=== PATIENT | female | born 1945 | race Caucasian/White ===

== ENCOUNTER 2016-08-28 09:17 | Emergency (ER) | payer MEDICARE ==
[2016-08-28] MEDS ORDERED: ACETAMINOPHEN 325 MG TABLET PO ONE (10:01)
[2016-08-28] MEDS ORDERED: NORMAL SALINE 1000 ML 1,000 ML IV ONE (10:21)
[2016-08-28] MEDS ORDERED: KETOROLAC TROMETHAMINE INJ/PF 30 MG/1 ML SDV IV ONE (10:34)
[2016-08-28] MEDS ORDERED: ONDANSETRON HCL INJ/PF 4 MG/2 ML SDV IV ONE (10:34)
--- NOTE | 2016-08-28 10:41 | ER Document Report ---
ED General - General Chief Complaint: Nausea/Vomiting Stated Complaint: VOMITING/NAUSEA Time Seen by Provider: 08/28/16 10:20 - HPI Patient complains to provider of: Vomiting nausea Notes: Patient coming in today for evaluation of nausea vomiting. Patient states ongoing for the last 2 days vomited approximately 8 times a day. Patient states normal bowel movement this morning no diarrhea. Denies fevers or chills. Patient states he did have a history of ulcerative colitis in the past however is never undergone a colectomy. Patient states she has had her gallbladder removed and tubal ligation. Patient coming in a probably interested to evaluation when patient is in no obvious distress. Denies any recent travel trauma denies any recent antibiotics. - Related Data Allergies/Adverse Reactions: No Known Allergies Allergy (Unverified 08/28/16 10:00) Past Medical History - Social History Smoking Status: Unknown if Ever Smoked Family History: Reviewed & Not Pertinent - Past Medical History Cardiac Medical History: Reports: Hx Hypercholesterolemia, Hx Hypertension Endocrine Medical History: Reports: Hx Diabetes Mellitus Type 2 GI Medical History: Reports: Hx Gastroesophageal Reflux Disease Review of Systems - Review of Systems Constitutional: No symptoms reported EENT: No symptoms reported Cardiovascular: No symptoms reported Respiratory: No symptoms reported Gastrointestinal: Nausea, Vomiting Genitourinary: No symptoms reported Female Genitourinary: No symptoms reported Musculoskeletal: No symptoms reported Skin: No symptoms reported Hematologic/Lymphatic: No symptoms reported Neurological/Psychological: No symptoms reported -: Yes All other systems reviewed and negative Physical Exam - Vital signs Vitals: Temp Pulse Resp BP Pulse Ox 97.4 F 105 H 16 144/98 H 97 08/28/16 09:40 08/28/16 09:40 08/28/16 09:40 08/28/16 09:40 08/28/16 09:40 Interpretation: Normal - General General appearance: Appears well, Alert - HEENT Head: Normocephalic, Atraumatic Eyes: Normal Pupils: PERRL - Respiratory Respiratory status: No respiratory distress Chest status: Nontender Breath sounds: Normal Chest palpation: Normal - Cardiovascular Rhythm: Regular Heart sounds: Normal auscultation Murmur: No - Abdominal Inspection: Normal Distension: No distension Bowel sounds: Normal Tenderness: Nontender Organomegaly: No organomegaly - Back Back: Normal, Nontender - Extremities General upper extremity: Normal inspection, Nontender, Normal color, Normal ROM , Normal temperature General lower extremity: Normal inspection, Nontender, Normal color, Normal ROM , Normal temperature, Normal weight bearing. No: Daniel's sign - Neurological Neuro grossly intact: Yes Cognition: Normal Orientation: AAOx4 [place] Coma Scale Eye Opening: Spontaneous [place] Coma Scale Verbal: Oriented Vijaya Coma Scale Motor: Obeys Commands Vijaya Coma Scale Total: 15 Speech: Normal Motor strength normal: LUE, RUE, LLE, RLE Sensory: Normal - Psychological Associated symptoms: Normal affect, Normal mood - Skin Skin Temperature: Warm Skin Moisture: Dry Skin Color: Normal Course - Re-evaluation Re-evalutation: 08/28/16 18:55 The patient presents with n/v without signs of peritonitis or other life- threatening or serious etiology. The patient appears stable for discharge and has been instructed to return immediately if the symptoms worsen in any way, or in 8-12hr if not improved for re-evaluation. The patient has been instructed to return if the symptoms worsen or change in any way.. 08/28/16 18:55 Patient was able to tolerate p.o. no vomiting while here. Patient was given 2 bags of normal saline will be discharged home with nausea medication. - Vital Signs Vital signs: Temp Pulse Resp BP Pulse Ox 98.2 F 100 16 131/58 H 97 08/28/16 13:10 08/28/16 13:10 08/28/16 13:10 08/28/16 13:10 08/28/16 13:10 - Laboratory Result Diagrams: 08/28/16 10:28 08/28/16 10:28 Laboratory results interpreted by me: 08/28/16 08/28/16 08/28/16 10:28 10:28 10:55 Seg Neutrophils % 79.8 H Sodium 135.9 L Creatinine 0.51 L Glucose 301 H Direct Bilirubin 0.5 H AST 13 L Alkaline Phosphatase 140 H Lipase < 10.0 L Urine Protein 30 H Urine Glucose (UA) >=500 H Urine Ketones 80 H Ur Leukocyte Esterase TRACE H Discharge - Discharge Clinical Impression: Nausea & vomiting Qualifiers: Vomiting type: unspecified Vomiting Intractability: unspecified Qualified Code( s): R11.2 - Nausea with vomiting, unspecified Condition: Good Disposition: HOME, SELF-CARE Instructions: Vomiting ([facility]), Clear Liquid Diet ([facility]), Gastroenteritis (adult) ([facility]) Additional Instructions: Medication as prescribed. Her lab today is consistent with some mild dehydration more likely from the vomiting. Vomiting is more likely from a virus. You may experience diarrhea later. Time this illness will take approximately 2-5 days to get out the system. I would recommend sticking to a clear liquid diet for the next 12-24 hrs. Prescriptions: Ondansetron [Zofran Odt 4 mg Tablet] 1 tab PO Q4H PRN #30 tab.rapdis PRN Reason: For Nausea/Vomiting Promethazine HCl [Phenergan 25 mg Tablet] 1 tab PO Q6H PRN #30 tablet PRN Reason: Referrals: SHADIA OBRIEN MD [Primary Care Provider] - Follow up in 3-5 days
[2016-08-28 11:01] LABS: ABSOLUTE EOSINOPHILS # (AUTO) 0.1 10^3/uL (0.0-0.6); ABSOLUTE LYMPHOCYTES (AUTO) 1.4 10^3/uL (0.5-4.7); ABSOLUTE MONOCYTES (AUTO) 0.4 10^3/uL (0.1-1.4); ABSOLUTE NEUT (AUTO) 7.3 10^3/uL (1.7-8.2); BASOPHILS % (AUTO) 0.4 % (0-2); EOSINOPHILS % (AUTO) 0.7 % (0-6); HEMATOCRIT 43.3 % (36.0-47.0); HEMOGLOBIN 14.6 g/dL (12.0-15.5); HGB HCT DIFFERENCE 0.5; LYMPHOCYTES % (AUTO) 14.8 % (13-45); MEAN CORPUSCULAR HEMOGLOBIN 28.1 pg (27.0-33.4); MEAN CORPUSCULAR HGB CONC 33.8 g/dL (32.0-36.0); MEAN CORPUSCULAR VOLUME 83 fl (80-97); MONOCYTES % (AUTO) 4.3 % (3-13); RED BLOOD COUNT 5.22 10^6/uL (3.72-5.28); RED CELL DISTRIBUTION WIDTH 13.3 % (11.5-14.0); SEGMENTED NEUTROPHILS % (AUTO) 79.8 % (42-78); WHITE BLOOD COUNT 9.2 10^3/uL (4.0-10.5)
[2016-08-28 11:18] LABS: ALANINE AMINOTRANSFERASE 20 U/L (9-52); ALBUMIN 3.8 g/dL (3.5-5.0); ALKALINE PHOSPHATASE 140 U/L (38-126); ANION GAP 11 (5-19); ASPARTATE AMINO TRANSFERASE 13 U/L (14-36); BILIRUBIN,DIRECT 0.5 mg/dL (0.0-0.4); BILIRUBIN,TOTAL 0.8 mg/dL (0.2-1.3); BLOOD UREA NITROGEN 15 mg/dL (7-20); CALCIUM 9.2 mg/dL (8.4-10.2); CARBON DIOXIDE 22 mmol/L (22-30); CHLORIDE 103 mmol/L (98-107); CREATININE RESULT 0.51 mg/dL (0.52-1.25); GLUCOSE 301 mg/dL (75-110); LIPASE < 10.0 U/L (23-300); POTASSIUM 4.4 mmol/L (3.6-5.0); SODIUM 135.9 mmol/L (137-145); TOTAL PROTEIN 7.2 g/dL (6.3-8.2)
[2016-08-28 11:20] LABS: APPEARANCE,URINE SLIGHTLY-CLOUDY; BILIRUBIN,URINE NEGATIVE (NEGATIVE); GLUCOSE, URINE >=500 mg/dL (NEGATIVE); KETONES,URINE 80 mg/dL (NEGATIVE); LEUKOCYTE ESTERASE,URINE TRACE (NEGATIVE); NITRITE,URINE NEGATIVE (NEGATIVE); PROTEIN,URINE 30 mg/dL (NEGATIVE); URINE SPECIFIC GRAVITY 1.031; UROBILINOGEN,URINE NEGATIVE mg/dL (<2.0)
[2016-08-28] MEDS ORDERED: ONDANSETRON ODT 4 MG TAB (6 TAB/DSPK) PO PRN (12:54)
[2016-08-28 13:37] VITALS: BP 131/58
== END 2016-08-28 13:11 | disposition home or self-care (01) ==
LOC: ER 09:17
DX: R11.2 Nausea with vomiting, unspecified (principal); E11.9 Type 2 diabetes mellitus without complications; I10 Essential (primary) hypertension; Z87.19 Personal history of other diseases of the digestive system; Z90.49 Acquired absence of other specified parts of digestive tract; Z98.51 Tubal ligation status
CPT/HCPCS: 99284; 96374; 96375; 36415; 83690; 85025; 80053; 81001; A9270 ×2; J1885; J2405; J7030

== ENCOUNTER 2016-08-29 15:36 | Emergency (ER) | payer MEDICARE ==
[2016-08-29] MEDS ORDERED: CYCLOBENZAPRINE HCL 10 MG TABLET PO ONE (15:53)
--- NOTE | 2016-08-29 16:11 | ER Document Report ---
ED Neck/Back Problem - General Chief Complaint: Neck Pain >24hrs old Stated Complaint: NECK PAIN, NAUSEA, VOMITING Time Seen by Provider: 08/29/16 15:40 Notes: Patient is a 61-year-old female presents emergency department complaining of left neck pain. Patient states that she has a history of cervical fusion she states that she definitely was ambulatory and had left neck pain. She is followed up with her primary care physician Dr. Blanton who prescribed her symptoms with post obstructive developing. Patient states that she does have a history of her. She has not been able to take her medications Primaxin. She was in yesterday for her nausea and vomiting and sent home with Phenergan. She returns today she is intact to the pain medication and therefore stable to take in her neck. - Related Data Allergies/Adverse Reactions: No Known Allergies Allergy (Unverified 08/28/16 10:00) Past Medical History - Social History Smoking Status: Former Smoker Chew tobacco use (# tins/day): No Frequency of alcohol use: None Drug Abuse: None Family History: Reviewed & Not Pertinent - Past Medical History Cardiac Medical History: Reports: Hx Hypercholesterolemia, Hx Hypertension Endocrine Medical History: Reports: Hx Diabetes Mellitus Type 2 GI Medical History: Reports: Hx Gastroesophageal Reflux Disease Review of Systems - Review of Systems Constitutional: No symptoms reported Gastrointestinal: See HPI Musculoskeletal: See HPI -: Yes All other systems reviewed and negative Physical Exam - Vital signs Vitals: Temp Pulse Resp BP Pulse Ox 97.6 F 97 18 152/98 H 95 08/29/16 15:46 08/29/16 15:46 08/29/16 15:46 08/29/16 15:46 08/29/16 15:46 - Notes Notes: PHYSICAL EXAM GENERAL: Alert, interacts well. HEAD: Normocephalic, atraumatic. NECK: Good range of motion due to severe pain. Patient does admit to tenderness to palpation of spinous processes over existing cervical spine incision site. Patient with prior range of motion turning her head to the left. Able to turn her head to the right. Otherwise she points to her left trapezius as her source of pain. Tender to touch in that location. LUNGS: Clear to auscultation bilaterally, no wheezes, rales, or rhonchi. No respiratory distress. HEART: Regular rate and rhythm. No murmurs, gallops, or rubs. ABDOMEN: Soft, nondistended, nontender. No guarding, rebound, or rigidity.. Bowel sounds present in all 4 quadrants. EXTREMITIES: Moves all 4 extremities spontaneously. No edema, radial and dorsalis pedis pulses 2/4 bilaterally. No cyanosis. NEUROLOGICAL: Alert and oriented x4. Normal speech. PSYCH: Normal affect, normal mood. SKIN: Warm, dry, normal turgor. No rashes or lesions noted. Course - Re-evaluation Re-evalutation: 08/29/16 18:48 CT of the cervical spine does not show any new acute injury. Patient medicated with anti-inflammatories and muscle relaxers, she responded well to this treatment. Patient's sensory and motor functions are intact. Stable for discharge home with instruction to follow-up with primary care. - Vital Signs Vital signs: Temp Pulse Resp BP Pulse Ox 97.4 F 90 20 121/93 H 98 08/29/16 17:46 08/29/16 17:46 08/29/16 17:46 08/29/16 17:46 08/29/16 17:46 - Diagnostic Test Radiology reviewed: Image reviewed, Reports reviewed Discharge - Discharge Clinical Impression: Cervical strain Qualifiers: Encounter type: initial encounter Qualified Code(s): S16.1XXA - Strain of muscle, fascia and tendon at neck level, initial encounter Condition: Good Disposition: HOME, SELF-CARE Instructions: Use of [id number]-[id number]-[id number] Ibuprofen ([facility]) Additional Instructions: NECK INJURY (CERVICAL STRAIN): You have a neck strain. This is an injury to the muscles and ligaments in the neck. There is no evidence of a fracture of the neck bones. Also, no injury to the spinal cord or nerve roots was detected. Usually, stiffness and pain INCREASE for the first 24-48 hours after the injury. The pain will gradually resolve and the neck will become more mobile. Most patients are back at work or school within a few days. Typically, complete healing takes about two or three weeks. The usual initial treatment is rest and cold packs. A neck collar may be placed to keep the muscles of the neck at rest. Antiinflammatory and muscle relaxing medication are often used to reduce the spasm and irritation. You should call the doctor, or go to the hospital, if you develop numbness or weakness in any extremity, problems with your bladder or bowel, or pain radiating down the arms. USE OF TYLENOL (ACETAMINOPHEN): Acetaminophen may be taken for pain relief or fever control. It's much safer than aspirin, offering a wider range of "safe" dosages. It is safe during . Some brand names are Tylenol, Panadol, Datril, Anacin 3, Tempra, and Liquiprin. Acetaminophen can be repeated every four hours. The following are maximum recommended dosages: WEIGHT Dose Drops Elixir Chewable( 80mg) (LBS.) drprs=droppers tsp=teaspoon 6 40 mg 0.4 ml (1/2) 6-11 80 mg 0.8 ml (full) tsp 1 tab 12-16 120 mg 1 1/2 drprs 3/4 tsp 1 1/2 tabs 17-23 160 mg 2 drprs 1 tsp 2 tabs 24-30 240 mg 3 drprs 1 1/2 tsp 3 tabs 30-35 320 mg 2 tsp 4 tabs 36-41 360 mg 2 1/4 tsp 4 1/2 tabs 42-47 400 mg 2 1/2 tsp 5 tabs 48-53 480 mg 3 tsp 6 tabs 54-59 520 mg 3 1/4 tsp 6 1/2 tabs 60-64 560 mg 3 1/2 tsp 7 tabs 65-70 600 mg 3 3/4 tsp 7 1/2 tabs 71-76 640 mg 4 tsp 8 tabs 77-82 720 mg 4 1/2 tsp 9 tabs 83-88 800 mg 5 tsp 10 tabs >89 pounds or adults 650 mg to 900 mg Acetaminophen can be repeated every four hours. Maximum dose not to exceed 4000 mg a day. These maximum recommended dosages are slightly higher than the dosages written on the product container, but these dosages are very safe and below the toxic dosage for acetaminophen. ICE PACKS: Apply ice packs frequently against the painful area. Many different schedules are recommended, such as "20 minutes on, 20 minutes off" or "one hour ice, two hours rest." If you need to work, you may need to go longer between ice treatments. You should plan to have the area ice packed AT LEAST one fourth of the time. The ice should be applied over the wrap, tape, or splint, or over a layer of cloth -- not directly against the skin. Some ice bags have a built-in cloth and can be put directly on the skin. WARM PACKS: After approximately two days, apply gentle heat (such as a heating pad or hot water bottle) for about 20 to 30 minutes about every two hours -- at least four times daily. Warmth and elevation will help you make a more rapid recovery , and will ease the pain considerably. Do not use HOT heat, and never apply heat for longer than 30 minutes. The continuous heat can invisibly damage skin and muscles -- even when no burn is seen on the surface. Damaged muscles can make you MORE sore. MUSCLE RELAXERS: Muscle relaxing medications are usually prescribed for acute muscle spasm or injury to the neck and back. They are often combined with antiinflammatory pain medication for increased relief. You may stop the muscle relaxer when the pain and stiffness have improved. Start the medication again if spasms recur. Muscle relaxers may cause drowsiness, especially with the first dose. Do not operate machinery or drive while under the effects of the medication. Most muscle relaxers last up to 24 hours. Do not combine the medication with alcohol. FOLLOW-UP CARE: If you have been referred to a physician for follow-up care, call the physician s office for an appointment as you were instructed or within the next two days. If you experience worsening or a significant change in your symptoms, notify the physician immediately or return to the Emergency Department at any time for re-evaluation. Prescriptions: Cyclobenzaprine HCl [Flexeril 10 mg Tablet] 10 mg PO TIDP PRN #15 tab PRN Reason: Forms: Elevated Blood Pressure Referrals: SHADIA BLANTON MD [Primary Care Provider] - Follow up in 1 week
--- NOTE | 2016-08-29 16:23 | RADIOLOGY REPORT (SQ) ---
EXAM DESCRIPTION: CT CERVICAL SPINE WITHOUT COMPLETED DATE/TIME: 08/29/2016 4:05 pm REASON FOR STUDY: neck pain, h/o fusion COMPARISON: None. TECHNIQUE: Axial images acquired through the cervical spine without intravenous contrast. Images re viewed with lung, soft tissue and bone windows. Reconstructed coronal and sagittal MPR images review ed. Images stored on PACS. All CT scanners at this facility use dose modulation, iterative reconstruction, and/or weight based d osing when appropriate to reduce radiation dose to as low as reasonably achievable (ALARA). [facility]: Dose Right [facility]: CareDose [facility]: Dose Right [facility]: Teradose 4D [facility]: [employer] RADIATION DOSE: 16.04 mGy. LIMITATIONS: None. FINDINGS: ALIGNMENT: Anatomic. MINERALIZATION: Normal. VERTEBRAL BODIES: No fractures or dislocation. DISCS: Multilevel moderate degenerative disc disease. FACETS, LATERAL MASSES, POSTERIOR ELEMENTS: No fractures. No dislocation. No acute findings. Fusio n of the posterior elements at C2-3. Postoperative changes extending from C3 through C7. Mild to mo derate degenerative changes involving facet joints. HARDWARE: None in the spine. VISUALIZED RIBS: No fractures. LUNG APICES AND SOFT TISSUES: No significant or acute findings. OTHER: No significant spinal stenosis. Moderate left neural foraminal narrowing at C4-5 with severe left neural foraminal narrowing at C5-6. Mild right neural foraminal narrowing at C5-6 and moderate right neural foraminal narrowing at C6-7. IMPRESSION: 1. Degenerative changes and postsurgical changes without evidence of fracture. No sign ificant spinal stenosis. Neural foraminal narrowing at C4-5, C5-6 and C6-7 as described TECHNICAL DOCUMENTATION: JOB ID: [id number] Quality ID # [id number]: Final reports with documentation of one or more dose reduction techniques (e.g., Au tomated exposure control, adjustment of the mA and/or kV according to patient size, use of iterative reconstruction technique) 2010 [employer]- All Rights Reserved
[2016-08-29] MEDS ORDERED: ONDANSETRON HCL 8 MG TABLET PO ONE (16:24)
[2016-08-29] MEDS ORDERED: KETOROLAC TROMETHAMINE 60 MG/2 ML SDV IM ONE (16:24)
[2016-08-29 17:48] VITALS: BP 121/93
== END 2016-08-29 17:48 | disposition home or self-care (01) ==
LOC: ER 15:36
DX: S16.1XXA Strain of muscle, fascia and tendon at neck level, initial encounter (principal); M54.2 Cervicalgia; R11.2 Nausea with vomiting, unspecified; Z87.891 Personal history of nicotine dependence; X58.XXXA Exposure to other specified factors, initial encounter
CPT/HCPCS: 99283; 96372; 72125; A9270 ×2; J1885; S0119

== ENCOUNTER → 2016-12-06 | Outpatient (CLI) | payer MEDICARE ==
--- NOTE | 2016-12-06 10:51 | WOMENS IMAGING REPORT ---
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 TECHNIQUE: Dual-Energy X-ray Absorptiometry (DEXA) of the AP Spine and Hip. LIMITATIONS: None. FINDINGS: LUMBAR SPINE: The bone mineral density (BMD) measured from L1-L4 in the AP projection correlates with a T-score of -1.4, which is osteopenia as defined by the World Health Organization. HIP: The bone mineral density (BMD) measured in the left femoral neck at the hip correlates with a T-score of -2.9, which is osteopenia as defined by the World Health Organization. IMPRESSION: 1. LUMBAR SPINE: OSTEOPENIA. 2. HIP: OSTEOPENIA. COMMENT: The World Health Organization defines low BMD as follows: T-score: Normal: Greater than -1.0 Osteopenia: Between -1.0 and -2.5 Osteoporosis: Less than -2.5 without fractures Established osteoporosis: Less than -2.5 with fractures In general, you may wish to consider: Diagnosis Treatment Follow-up DEXA Normal BMD Prevention 2-3 years Osteopenia Prevention/Therapy 1-2 years Osteoporosis Therapy Yearly TECHNICAL DOCUMENTATION: JOB ID: [id number] [employer]- All Rights Reserved
== END ==
LOC: WI 09:43
PROVIDERS: ATTEND Family Medicine
DX: Z12.31 Encounter for screening mammogram for malignant neoplasm of breast (principal); E28.39 Other primary ovarian failure; M85.88 Other specified disorders of bone density and structure, other site
CPT/HCPCS: 77080; G0202; 77067

== ENCOUNTER → 2016-12-28 | Outpatient (CLI) | payer MEDICARE ==
--- NOTE | 2016-12-28 16:38 | WOMENS IMAGING REPORT ---
EXAM DESCRIPTION: BILAT DIAGNOSTIC MAMMO W/CAD; U/S BREAST UNILAT LIMITED COMPLETED DATE/TIME: 12/28/2016 1:08 pm; 12/28/2016 2:05 pm REASON FOR STUDY: LUMP; N63; NODULAR DENSITY N63 UNSPECIFIED LUMP IN BREAST COMPARISON: Bilateral mammograms 12/06/2016 TECHNIQUE: Cone compression craniocaudal and mediolateral oblique views of each breast recorded usin g digital acquisition. Bilateral 90 mediolateral views were obtained. Bilateral breast ultrasound was performed. LIMITATIONS: None. FINDINGS: RIGHT BREAST MASSES: In the medial right breast, 15 cm from the nipple at the 2 to 3 o'clock position, a mammograp hic nodule is present with partial border loss. CALCIFICATIONS: No new or suspicious calcifications. ARCHITECTURAL DISTORTION: None. DEVELOPING DENSITY: None. ASYMMETRY: None noted. OTHER: No other significant findings. LEFT BREAST MASSES: No suspicious masses. CALCIFICATIONS: No new or suspicious calcifications. ARCHITECTURAL DISTORTION: None. DEVELOPING DENSITY: None. ASYMMETRY: None noted. OTHER: No other significant finding. Read with the assistance of CAD: .[facility] - R2 [employer] Version 1.3 .[facility] - R2 Cenova Version 1.3 .[facility] - R2 Cenova Version 2.4 .[facility] - R2 Cenova Version 2.4 .[facility] - R2 [employer]cer Version 9.2 Bilateral breast ultrasound: On the right side, about the 2 o'clock position 15 cm from the nipple, a 9 mm by 7 mm nodule is prese nt with internal color flow, ill-defined margins, and acoustic absorption worrisome for malignancy. Ultrasound-guided core biopsy of this nodule with post biopsy clip placement and immediate follow-up two-view mammogram is recommended. This finding was discussed with the patient, and she agrees to th e procedure. Ultrasound of the left breast was performed over the 11 to 1 o'clock position. No worrisome findings . No masses. No cysts. No worrisome acoustic absorption. IMPRESSION: Medial right breast 9 x 7 mm nodule with no worrisome features for malignancy. Ultrasou nd-guided core biopsy and post biopsy clip placement is recommended. No mammographic or sonographic evidence for malignancy left breast. BREAST DENSITY: c. The breasts are heterogeneously dense, which may obscure small masses. BIRAD: 5 Highly suggestive of malignancy. Appropriate action should be taken. RECOMMENDATION: RECOMMENDED FOLLOW UP: Right breast ultrasound-guided core biopsy, post biopsy clip placement and immediate follow-up two-view mammogram. No specific followup for the left breast. SPECIFIC INTERVENTION/IMAGING/CONSULTATION RECOMMENDED:No additional intervention/ imaging/consultati on needed at this time. COMMUNICATION:These results were discussed with the patient. Results were also called to Dr. Marifer michelle's nurse, 12/28/2016, 1400 hours COMMENT: The patient has been notified of the results by letter per [facility] requirements. Additional no tification policies are in place for contacting patient with suspicious or incomplete findings. Quality ID #[id number]: The [employer] recommends an annual screening mammogram for women aged 40 years or over. This facility utilizes a reminder system to ensure that all patients receive reminder letters, and/or direct phone calls for appointments. This includes reminders for routine scr eening mammograms, diagnostic mammograms, or other Breast Imaging Interventions when appropriate. Th is patient will be placed in the appropriate reminder system. The [employer] (ACR) has developed recommendations for screening MRI of the breast s in certain patient populations, to be used in conjunction with mammography. Breast MRI surveillanc e may be appropriate for women with more than 20% lifetime risk of developing breast cancer as deter mined by genetic testing, significant family history of the disease, or history of mantle radiation f or Hodgkins Disease. ACR Practice Guidelines 2008. TECHNICAL DOCUMENTATION: FINDING NUMBER: (1) ASSESSMENT: (1) JOB ID: [id number] [employer]- All Rights Reserved
--- NOTE | 2016-12-28 16:38 | WOMENS IMAGING REPORT ---
EXAM DESCRIPTION: BILAT DIAGNOSTIC MAMMO W/CAD; U/S BREAST UNILAT LIMITED COMPLETED DATE/TIME: 12/28/2016 1:08 pm; 12/28/2016 2:05 pm REASON FOR STUDY: LUMP; N63; NODULAR DENSITY N63 UNSPECIFIED LUMP IN BREAST COMPARISON: Bilateral mammograms 12/06/2016 TECHNIQUE: Cone compression craniocaudal and mediolateral oblique views of each breast recorded usin g digital acquisition. Bilateral 90 mediolateral views were obtained. Bilateral breast ultrasound was performed. LIMITATIONS: None. FINDINGS: RIGHT BREAST MASSES: In the medial right breast, 15 cm from the nipple at the 2 to 3 o'clock position, a mammograp hic nodule is present with partial border loss. CALCIFICATIONS: No new or suspicious calcifications. ARCHITECTURAL DISTORTION: None. DEVELOPING DENSITY: None. ASYMMETRY: None noted. OTHER: No other significant findings. LEFT BREAST MASSES: No suspicious masses. CALCIFICATIONS: No new or suspicious calcifications. ARCHITECTURAL DISTORTION: None. DEVELOPING DENSITY: None. ASYMMETRY: None noted. OTHER: No other significant finding. Read with the assistance of CAD: .[facility] - R2 Cenova Version 1.3 .[facility] Imaging - R2 Cenova Version 1.3 .[facility] Imaging - R2 Cenova Version 2.4 .[facility] - R2 Cenova Version 2.4 .[facility] - R2 Parking Cashier Version 9.2 Bilateral breast ultrasound: On the right side, about the 2 o'clock position 15 cm from the nipple, a 9 mm by 7 mm nodule is prese nt with internal color flow, ill-defined margins, and acoustic absorption worrisome for malignancy. Ultrasound-guided core biopsy of this nodule with post biopsy clip placement and immediate follow-up two-view mammogram is recommended. This finding was discussed with the patient, and she agrees to th e procedure. Ultrasound of the left breast was performed over the 11 to 1 o'clock position. No worrisome findings . No masses. No cysts. No worrisome acoustic absorption. IMPRESSION: Medial right breast 9 x 7 mm nodule with no worrisome features for malignancy. Ultrasou nd-guided core biopsy and post biopsy clip placement is recommended. No mammographic or sonographic evidence for malignancy left breast. BREAST DENSITY: c. The breasts are heterogeneously dense, which may obscure small masses. BIRAD: 5 Highly suggestive of malignancy. Appropriate action should be taken. RECOMMENDATION: RECOMMENDED FOLLOW UP: Right breast ultrasound-guided core biopsy, post biopsy clip placement and immediate follow-up two-view mammogram. No specific followup for the left breast. SPECIFIC INTERVENTION/IMAGING/CONSULTATION RECOMMENDED:No additional intervention/ imaging/consultati on needed at this time. COMMUNICATION:These results were discussed with the patient. Results were also called to Dr. Marifer michelle's nurse, 12/28/2016, 1400 hours COMMENT: The patient has been notified of the results by letter per SA requirements. Additional no tification policies are in place for contacting patient with suspicious or incomplete findings. Quality ID #225: The [employer] recommends an annual screening mammogram for women aged 40 years or over. This facility utilizes a reminder system to ensure that all patients receive reminder letters, and/or direct phone calls for appointments. This includes reminders for routine scr eening mammograms, diagnostic mammograms, or other Breast Imaging Interventions when appropriate. Th is patient will be placed in the appropriate reminder system. The [employer] (ACR) has developed recommendations for screening MRI of the breast s in certain patient populations, to be used in conjunction with mammography. Breast MRI surveillanc e may be appropriate for women with more than 20% lifetime risk of developing breast cancer as deter mined by genetic testing, significant family history of the disease, or history of mantle radiation f or Hodgkins Disease. ACR Practice Guidelines 2008. TECHNICAL DOCUMENTATION: FINDING NUMBER: (1) ASSESSMENT: (1) JOB ID: [id number] [employer]- All Rights Reserved
--- NOTE | 2016-12-28 16:38 | WOMENS IMAGING REPORT ---
EXAM DESCRIPTION: BILAT DIAGNOSTIC MAMMO W/CAD; U/S BREAST UNILAT LIMITED COMPLETED DATE/TIME: 12/28/2016 1:08 pm; 12/28/2016 2:05 pm REASON FOR STUDY: LUMP; N63; NODULAR DENSITY N63 UNSPECIFIED LUMP IN BREAST COMPARISON: Bilateral mammograms 12/06/2016 TECHNIQUE: Cone compression craniocaudal and mediolateral oblique views of each breast recorded usin g digital acquisition. Bilateral 90 mediolateral views were obtained. Bilateral breast ultrasound was performed. LIMITATIONS: None. FINDINGS: RIGHT BREAST MASSES: In the medial right breast, 15 cm from the nipple at the 2 to 3 o'clock position, a mammograp hic nodule is present with partial border loss. CALCIFICATIONS: No new or suspicious calcifications. ARCHITECTURAL DISTORTION: None. DEVELOPING DENSITY: None. ASYMMETRY: None noted. OTHER: No other significant findings. LEFT BREAST MASSES: No suspicious masses. CALCIFICATIONS: No new or suspicious calcifications. ARCHITECTURAL DISTORTION: None. DEVELOPING DENSITY: None. ASYMMETRY: None noted. OTHER: No other significant finding. Read with the assistance of CAD: .[facility] - R2 Cenova Version 1.3 .[facility] Imaging - R2 Cenova Version 1.3 .[facility] Imaging - R2 Cenova Version 2.4 .[facility] - R2 Cenova Version 2.4 .[facility] - R2 Casino Assistant Manager Version 9.2 Bilateral breast ultrasound: On the right side, about the 2 o'clock position 15 cm from the nipple, a 9 mm by 7 mm nodule is prese nt with internal color flow, ill-defined margins, and acoustic absorption worrisome for malignancy. Ultrasound-guided core biopsy of this nodule with post biopsy clip placement and immediate follow-up two-view mammogram is recommended. This finding was discussed with the patient, and she agrees to th e procedure. Ultrasound of the left breast was performed over the 11 to 1 o'clock position. No worrisome findings . No masses. No cysts. No worrisome acoustic absorption. IMPRESSION: Medial right breast 9 x 7 mm nodule with no worrisome features for malignancy. Ultrasou nd-guided core biopsy and post biopsy clip placement is recommended. No mammographic or sonographic evidence for malignancy left breast. BREAST DENSITY: c. The breasts are heterogeneously dense, which may obscure small masses. BIRAD: 5 Highly suggestive of malignancy. Appropriate action should be taken. RECOMMENDATION: RECOMMENDED FOLLOW UP: Right breast ultrasound-guided core biopsy, post biopsy clip placement and immediate follow-up two-view mammogram. No specific followup for the left breast. SPECIFIC INTERVENTION/IMAGING/CONSULTATION RECOMMENDED:No additional intervention/ imaging/consultati on needed at this time. COMMUNICATION:These results were discussed with the patient. Results were also called to Dr. Marifer michelle's nurse, 12/28/2016, 1400 hours COMMENT: The patient has been notified of the results by letter per SA requirements. Additional no tification policies are in place for contacting patient with suspicious or incomplete findings. Quality ID #225: The [employer] recommends an annual screening mammogram for women aged 40 years or over. This facility utilizes a reminder system to ensure that all patients receive reminder letters, and/or direct phone calls for appointments. This includes reminders for routine scr eening mammograms, diagnostic mammograms, or other Breast Imaging Interventions when appropriate. Th is patient will be placed in the appropriate reminder system. The [employer] (ACR) has developed recommendations for screening MRI of the breast s in certain patient populations, to be used in conjunction with mammography. Breast MRI surveillanc e may be appropriate for women with more than 20% lifetime risk of developing breast cancer as deter mined by genetic testing, significant family history of the disease, or history of mantle radiation f or Hodgkins Disease. ACR Practice Guidelines 2008. TECHNICAL DOCUMENTATION: FINDING NUMBER: (1) ASSESSMENT: (1) JOB ID: [id number] [employer]- All Rights Reserved
== END ==
LOC: WI 12:40
PROVIDERS: ATTEND Family Medicine
DX: N63 Unspecified lump in breast (principal)
CPT/HCPCS: 76642; G0204; 77066

== ENCOUNTER → 2017-04-29 | Day surgery (SDC) | payer MEDICARE ==
[~2017-04-29] MED LIST: BUPIVACAINE HCL 0.5 % INJ/PF 30 ML SDV ONE; LIDOCAINE 1% INJ-PF (10 MG/ML) 30 ML SDV ONE; METHYLPREDNISOLONE ACETATE INJ 40 MG/1 ML ML ONE
--- NOTE | 2017-04-29 18:16 | RADIOLOGY REPORT (SQ) ---
EXAM DESCRIPTION: HIP UNILATERAL-1 VIEW; INJECT/ASPIR HIP/SHLDR/KNEE; FLUORO/NEEDLE PLACEMENT COMPLETED DATE/TIME: 04/29/2017 2:51 pm REASON FOR STUDY: M16.11 UNILATERAL PRIMARY OSTEOARTHRITIS, RIGHT HIP M16.11 UNILATERAL PRIMARY OST EOARTHRITIS, RIGHT HIP COMPARISON: None. FLUOROSCOPY TIME: 24 seconds 3 digital fluoroscopic images saved to PACS. LIMITATIONS: None. PROCEDURE: SITE OF INJECTION: Right hip joint space LOCALIZING CONTRAST TYPE AND DOSE: 1 mL of Isovue-300 was injected to confirm intra-articular needle placement MEDICATION TYPE AND DOSE: 80 mg of Depo-Medrol, 3 mL of 0.5% bupivacaine injected into the right hip joint Using 6 mL of 1% lidocaine for local anesthesia and sterile technique with fluoroscopic guidance, the needle was advanced into the joint. Iodinated contrast was injected to verify intraarticular placeme nt. This was followed by therapeutic injection of the indicated medications. The needle was removed . There were no immediate complications. Preprocedure pain level: 8/10. Postprocedure pain level: 4/10. IMPRESSION: THERAPEUTIC INJECTION OF THE RIGHT HIP JOINT ABOVE. COMMENT: Patient medication list reviewed: Yes- Quality ID# 130:Eligible professional attests to doc umenting in the medical record they obtained, updated, or reviewed the patient's current medications. . Quality ID 145: Final reports for procedures using fluoroscopy that document radiation exposure ivone crow, or exposure time and number of fluorographic images (if radiation exposure indices are not avail able) TECHNICAL DOCUMENTATION: JOB ID: [id number] [employer]- All Rights Reserved
== END ==
LOC: RAD 13:21
PROVIDERS: ATTEND Orthopaedic Surgery
PROC: 3E0U33Z Introduction of Anti-inflammatory into Joints, Percutaneous Approach (ICD-10-PCS; principal; 2017-04-29)
DX: M16.11 Unilateral primary osteoarthritis, right hip (principal)
CPT/HCPCS: 73501; 20610; 77002; J3490; J1020

== ENCOUNTER → 2017-06-20 | Outpatient (CLI) | payer MEDICARE, OTHER ==
[2017-06-20 15:55] LABS: ABSOLUTE EOSINOPHILS # (AUTO) 0.2 10^3/uL (0.0-0.6); ABSOLUTE LYMPHOCYTES (AUTO) 3.9 10^3/uL (0.5-4.7); ABSOLUTE MONOCYTES (AUTO) 0.5 10^3/uL (0.1-1.4); ABSOLUTE NEUT (AUTO) 3.6 10^3/uL (1.7-8.2); BASOPHILS % (AUTO) 0.4 % (0-2); EOSINOPHILS % (AUTO) 2.5 % (0-6); HEMATOCRIT 43.2 % (36.0-47.0); HEMOGLOBIN 14.9 g/dL (12.0-15.5); LYMPHOCYTES % (AUTO) 47.5 % (13-45); MEAN CORPUSCULAR HEMOGLOBIN 28.3 pg (27.0-33.4); MEAN CORPUSCULAR HGB CONC 34.4 g/dL (32.0-36.0); MEAN CORPUSCULAR VOLUME 82 fl (80-97); MONOCYTES % (AUTO) 6.4 % (3-13); PLATELET COUNT 371 10^3/uL (150-450); RED BLOOD COUNT 5.25 10^6/uL (3.72-5.28); RED CELL DISTRIBUTION WIDTH 13.5 % (11.5-14.0); SEGMENTED NEUTROPHILS % (AUTO) 43.2 % (42-78); TOTAL CELLS COUNTED % (AUTO) 100 %; WHITE BLOOD COUNT 8.2 10^3/uL (4.0-10.5)
[2017-06-20 16:16] LABS: ALANINE AMINOTRANSFERASE 23 U/L (9-52); ALBUMIN 4.3 g/dL (3.5-5.0); ALKALINE PHOSPHATASE 128 U/L (38-126); ASPARTATE AMINO TRANSFERASE 10 U/L (14-36); BILIRUBIN,DIRECT 0.4 mg/dL (0.0-0.4); BILIRUBIN,TOTAL 0.5 mg/dL (0.2-1.3); TOTAL PROTEIN 7.3 g/dL (6.3-8.2)
== END ==
LOC: OD 14:50
PROVIDERS: ATTEND Radiology Radiation Oncology
DX: Z79.899 Other long term (current) drug therapy (principal); C50.211 Malignant neoplasm of upper-inner quadrant of right female breast; Z17.0 Estrogen receptor positive status [ER+]
CPT/HCPCS: 36415; 80076; 85025

== ENCOUNTER 2017-11-21 22:21 | Emergency (ER) | payer MEDICARE, OTHER ==
[2017-11-22 00:51] LABS: ABSOLUTE BASOPHILS # (AUTO) 0.1 10^3/uL (0.0-0.2); ABSOLUTE EOSINOPHILS # (AUTO) 0.3 10^3/uL (0.0-0.6); ABSOLUTE LYMPHOCYTES (AUTO) 2.1 10^3/uL (0.5-4.7); ABSOLUTE MONOCYTES (AUTO) 0.6 10^3/uL (0.1-1.4); ABSOLUTE NEUT (AUTO) 3.5 10^3/uL (1.7-8.2); EOSINOPHILS % (AUTO) 4.2 % (0-6); HEMATOCRIT 39.7 % (36.0-47.0); HEMOGLOBIN 14.4 g/dL (12.0-15.5); LYMPHOCYTES % (AUTO) 32.7 % (13-45); MEAN CORPUSCULAR HEMOGLOBIN 29.6 pg (27.0-33.4); MEAN CORPUSCULAR HGB CONC 36.2 g/dL (32.0-36.0); MEAN CORPUSCULAR VOLUME 82 fl (80-97); MONOCYTES % (AUTO) 9.2 % (3-13); PLATELET COUNT 368 10^3/uL (150-450); RED BLOOD COUNT 4.85 10^6/uL (3.72-5.28); RED CELL DISTRIBUTION WIDTH 13.5 % (11.5-14.0); SEGMENTED NEUTROPHILS % (AUTO) 52.9 % (42-78); TOTAL CELLS COUNTED % (AUTO) 100 %; WHITE BLOOD COUNT 6.6 10^3/uL (4.0-10.5)
[2017-11-22] MEDS ORDERED: ONDANSETRON HCL INJ/PF 4 MG/2 ML SDV IV ONE (00:54)
[2017-11-22] MEDS ORDERED: DICYCLOMINE HCL INJ 20 MG/2 ML AMPULE IM ONE (00:54)
--- NOTE | 2017-11-22 00:54 | ER Document Report ---
ED General - General Mode of Arrival: Ambulatory Information source: Patient TRAVEL OUTSIDE OF THE [place] IN LAST 30 DAYS: No <KAYE LARA - Last Filed: 11/22/17 03:47> <CHRISTIE DIOR - Last Filed: 11/22/17 06:33> - General Chief Complaint: Abdominal Pain Stated Complaint: FLANK PAIN Time Seen by Provider: 11/22/17 00:17 Notes: Patient is a 72 year old female with a history of ulcerative colitis presents to the emergency department complaining of abdominal pain onset 1 week ago worsening tonight. Patient sates the pain is located on the left side of the abdomen and radiates into the left flank. Patient states her pain is similar to a flare up of ulcerative colitis but also different due to not having any bloody diarrhea further stating she has been constipated. Patient denies any dysuria, burning sensations or vomiting. Patient states she saw her GI specialist, Dr. Pina, who placed her on Trulance and scheduled for a colonoscopy on 12/02/2017. She states the Trulance did not help her symptoms. (KAYE LARA) - Related Data Allergies/Adverse Reactions: No Known Allergies Allergy (Unverified 08/28/16 10:00) Past Medical History - General Information source: Patient - Social History Smoking Status: Never Smoker Family History: Reviewed & Not Pertinent Patient has suicidal ideation: No Patient has homicidal ideation: No - Past Medical History Cardiac Medical History: Reports: Hx Hypercholesterolemia, Hx Hypertension Endocrine Medical History: Reports: Hx Diabetes Mellitus Type 2 GI Medical History: Reports: Hx Gastroesophageal Reflux Disease <KAYE LARA - Last Filed: 11/22/17 03:47> Review of Systems - Review of Systems Constitutional: No symptoms reported EENT: No symptoms reported Cardiovascular: No symptoms reported Respiratory: No symptoms reported Gastrointestinal: See HPI, Abdominal pain, Nausea Genitourinary: See HPI, Flank pain Female Genitourinary: No symptoms reported Musculoskeletal: No symptoms reported Skin: No symptoms reported Hematologic/Lymphatic: No symptoms reported Neurological/Psychological: No symptoms reported -: Yes All other systems reviewed and negative <KYAE LARA - Last Filed: 11/22/17 03:47> Physical Exam - General General appearance: Alert, Other - Appears uncomfortable <KAYE LARA - Last Filed: 11/22/17 03:47> - Vital signs Interpretation: Normal - General General appearance: Appears well, Alert - HEENT Head: Normocephalic, Atraumatic Eyes: Normal Pupils: PERRL - Respiratory Respiratory status: No respiratory distress Chest status: Nontender Breath sounds: Normal Chest palpation: Normal - Cardiovascular Rhythm: Regular Heart sounds: Normal auscultation Murmur: No - Abdominal Inspection: Normal Distension: No distension Bowel sounds: Normal Tenderness: Tender - suprapubic Organomegaly: No organomegaly - Back Back: Normal, CVA tenderness - L - Extremities General upper extremity: Normal inspection, Nontender, Normal color, Normal ROM , Normal temperature General lower extremity: Normal inspection, Nontender, Normal color, Normal ROM , Normal temperature, Normal weight bearing. No: Daniel's sign - Neurological Neuro grossly intact: Yes Cognition: Normal Orientation: AAOx4 [place] Coma Scale Eye Opening: Spontaneous Vijaya Coma Scale Verbal: Oriented [place] Coma Scale Motor: Obeys Commands Vijaya Coma Scale Total: 15 Speech: Normal Motor strength normal: LUE, RUE, LLE, RLE Sensory: Normal - Psychological Associated symptoms: Normal affect, Normal mood - Skin Skin Temperature: Warm Skin Moisture: Dry Skin Color: Normal <CHRISTIE DIOR - Last Filed: 11/22/17 06:33> - Vital signs Vitals: Temp Pulse Resp BP Pulse Ox 98.3 F 44 L 20 151/90 H 98 11/21/17 22:28 11/21/17 22:28 11/21/17 22:28 11/21/17 22:28 11/21/17 22:28 Course - Laboratory Result Diagrams: 11/22/17 00:36 11/22/17 00:36 <KAYE LARA - Last Filed: 11/22/17 03:47> - Laboratory Result Diagrams: 11/22/17 00:36 11/22/17 00:36 <CHRISTIE DIOR - Last Filed: 11/22/17 06:33> - Re-evaluation Re-evalutation: 11/22/17 05:27 Patient is a 72-year-old female who comes in complaining of flank and abdominal pain. Urine is consistent with UTI/pyelonephritis. CT was performed to look for kidney stone. Some concern for stranding around the appendix. Patient has no right lower quadrant tenderness to palpation. 11/22/17 06:32 Patient has been seen by surgeon, Dr. Garzon. No evidence for appendicitis on exam or CT. Patient has UTI, possible pyelonephritis and pneumonia on x-ray. 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 She will be given Bentyl and Zofran as well as a Fleet enema to use at home and she does not want to use it here. She is feeling better, tolerating p.o. and has stable vitals. She is to return immediately if she has any nausea, fever, worsening symptoms or concerns. Understands agrees with plan. Stable for discharge. (CHRISTIE DIOR) - Vital Signs Vital signs: Temp Pulse Resp BP Pulse Ox 98.3 F 44 L 20 150/84 H 98 11/21/17 22:28 11/21/17 22:28 11/21/17 22:28 11/22/17 05:36 11/22/17 05:36 - Laboratory Laboratory results interpreted by me: 11/22/17 11/22/17 11/22/17 00:36 00:36 00:36 MCHC 36.2 H Potassium 3.4 L Creatinine 0.49 L Glucose 163 H AST 11 L Urine Glucose (UA) 50 H Urine Urobilinogen 2.0 H Ur Leukocyte Esterase LARGE H Discharge <KAYE LARA - Last Filed: 11/22/17 03:47> <CHRISTIE DIOR - Last Filed: 11/22/17 06:33> - Discharge Clinical Impression: Constipation UTI (urinary tract infection) Qualifiers: Urinary tract infection type: site unspecified Hematuria presence: without hematuria Qualified Code(s): N39.0 - Urinary tract infection, site not specified Pneumonia Qualifiers: Pneumonia type: due to unspecified organism Laterality: right Lung location: middle lobe of lung Qualified Code(s): J18.1 - Lobar pneumonia, unspecified organism Condition: Stable Disposition: HOME, SELF-CARE Instructions: Urinary Tract Infection ([facility]), Pneumonia ([facility]), Constipation ([facility] ) Additional Instructions: Please see your GI doctor as scheduled. Prescriptions: Azithromycin 250 mg PO DAILY #5 tablet Cephalexin Monohydrate [Keflex 500 mg Capsule] 500 mg PO TID #38 capsule Dicyclomine HCl [Bentyl 20 mg Tablet] 20 mg PO BID #40 tablet Metoclopramide HCl [Reglan 10 mg Tablet] 1 - 2 tab PO ASDIR PRN #25 tablet PRN Reason: Referrals: SHADIA OBRIEN MD [Primary Care Provider] - Follow up tomorrow Scribe Attestation: 11/22/17 06:33 I personally performed the services described in the documentation, reviewed and edited the documentation which was dictated to the scribe in my presence, and it accurately records my words and actions. (CHRISTIE DIOR) Scribe Documentation - Scribe Written by Cornelia:: Cornelia Beckett, 11/22/2017 01:14 acting as scribe for :: Samm <KAYE LARA - Last Filed: 11/22/17 03:47>
[2017-11-22] MEDS ORDERED: NORMAL SALINE 500 ML IV ONE (00:55)
[2017-11-22 01:01] LABS: APPEARANCE,URINE CLOUDY; BILIRUBIN,URINE NEGATIVE (NEGATIVE); CALCIUM OXALATE CRYSTALS,URINE FEW /HPF; COLOR,URINE YELLOW; GLUCOSE, URINE 50 mg/dL (NEGATIVE); KETONES,URINE NEGATIVE (NEGATIVE); LEUKOCYTE ESTERASE,URINE LARGE (NEGATIVE); NITRITE,URINE NEGATIVE (NEGATIVE); PROTEIN,URINE NEGATIVE (NEGATIVE); URINE SPECIFIC GRAVITY 1.024
[2017-11-22 01:03] LABS: ALANINE AMINOTRANSFERASE 14 U/L (9-52); ALKALINE PHOSPHATASE 108 U/L (38-126); ANION GAP 14 (5-19); ASPARTATE AMINO TRANSFERASE 11 U/L (14-36); BILIRUBIN,DIRECT 0.3 mg/dL (0.0-0.4); BILIRUBIN,TOTAL 0.6 mg/dL (0.2-1.3); BLOOD UREA NITROGEN 11 mg/dL (7-20); CALCIUM 9.9 mg/dL (8.4-10.2); CARBON DIOXIDE 25 mmol/L (22-30); CHLORIDE 103 mmol/L (98-107); GLUCOSE 163 mg/dL (75-110); POTASSIUM 3.4 mmol/L (3.6-5.0); SODIUM 141.8 mmol/L (137-145); TOTAL PROTEIN 7.4 g/dL (6.3-8.2)
[2017-11-22] MEDS ORDERED: CEFTRIAXONE 1 GM/D5W RTU 1 GM/50 ML RTUPB IV ONE (01:11)
[2017-11-22] MEDS ORDERED: CEFTRIAXONE INJ 1000 MG VIAL ONE (01:52)
--- NOTE | 2017-11-22 03:05 | RADIOLOGY REPORT (SQ) ---
EXAM DESCRIPTION: CT ABDOMEN PELVIS WITHOUT IV CONTRAST COMPLETED DATE/TME: 11/22/2017 01:28 CLINICAL HISTORY: 72 years, Female, L abd/ flnk pain, UTI COMPARISON: None. TECHNIQUE: Axial CT images of the abdomen and pelvis were obtained without IV contrast. Oral contrast was administered. DLP 447 Images stored on PACS. All CT scanners at this facility use dose modulation, iterative reconstruction, and/or weight based dosing when appropriate to reduce radiation dose to as low as reasonably achievable (ALARA). [facility]: Dose Right [facility]: CareDose [facility]: Dose Right [facility]: Teradose 4D [facility]: Smart Technologies LIMITATIONS: None. FINDINGS: There is an airspace opacity within the right middle lobe. The liver, pancreas, spleen, and adrenal glands are unremarkable. Cholecystectomy. Both kidneys appear unremarkable. There is no evidence of nephrolithiasis or hydronephrosis. There is no intraperitoneal free air or fluid. No lymphadenopathy. Stomach and small bowel are unremarkable. The appendix measures up to 9 mm in diameter with no definite surrounding inflammatory changes. Scattered diverticula are noted without diverticulitis. There is a 4.6 cm uterine fibroid. Coarse calcification is noted within the uterus. The urinary bladder is unremarkable. There are no lytic or blastic bone lesions IMPRESSION: Airspace opacities within the right middle lobe, likely due to pneumonia. Mildly dilated appendix with no definite surrounding inflammatory changes. This may be due to early acute appendicitis. Uterine fibroid. TECHNICAL DOCUMENTATION: Quality ID # 436: Final reports with documentation of one or more dose reduction techniques (e.g., Automated exposure control, adjustment of the mA and/or kV according to patient size, use of iterative reconstruction technique) 2010 [facility]- All Rights Reserved
--- NOTE | 2017-11-22 03:45 | RADIOLOGY REPORT (SQ) ---
EXAM DESCRIPTION: XR CHEST 2 VIEWS COMPLETED DATE/TME: 11/22/2017 03:15 CLINICAL HISTORY: 72 years Female, cough COMPARISON: 12/07/2015. CT ABDOMEN PELVIS WITHOUT IV CONTRAST 11/22/2017 01:28 FINDINGS: Adequate lung volume, moderate patchy opacity of the right mid lung field, mild interstitial markings,, normal cardiac silhouette, atherosclerosis, right lateral thoracic clips, and intact bony thorax. IMPRESSION: Right middle lobar pneumonia. Recommend CR/CT surveillance including at 7-12 weeks following initiation of clinically warranted therapy.
[2017-11-22] MEDS ORDERED: FENTANYL CITRATE INJ/PF 100 MCG/2 ML AMPUL IV ONE (04:38)
[2017-11-22] MEDS ORDERED: AZITHROMYCIN INJ 500 MG VIAL IV ONE (04:46)
[2017-11-22] MEDS ORDERED: METOCLOPRAMIDE HCL INJ/PF 10 MG/2 ML SDV IV ONE (05:25)
[2017-11-22] MEDS ORDERED: NA PHOS,M-B/NA PHOS,DI-BA (ADULT) 133 ML ENEMA PR ONE (06:25)
[2017-11-22 06:42] VITALS: BP 141/82
--- NOTE | 2017-11-22 10:51 | CONSULTATION REPORT E ---
Consultation Report NAME: MELIDA ESTRELLA : 1945 AGE: 72Y DATE: 11/22/2017 TO: TOMMY MIRANDA M.D. FROM: Rayna GASTELUM, Requesting Physician CHIEF COMPLAINT: Abdominal pains. HISTORY OF PRESENT ILLNESS: This is a 72-year-old female who started complaining of left lower quadrant crampy abdominal pains radiating to the back about a week ago. About three days ago, consulted a trouble lineman, Dr. Pina at [facility] who gave her some medications for her history of ulcerative colitis, but the patient claims it did not help. The pains got worse last night and went to the Emergency Department where a CAT scan of the abdomen was done which showed a 9 mm appendix with no inflammation. The patient denies any right lower quadrant abdominal pains and she is nontender on the right side at all. There is evidence of constipation on the CAT scan. No other findings on the abdominal films. She admits to having constipation for the past 4 days. She claims she never had any constipation in the past as far as she can remember. PAST MEDICAL HISTORY: 1. History of ulcerative colitis diagnosed about 20 years. 2. History of diabetes and takes glipizide and metformin. PAST SURGICAL HISTORY: Cholecystectomy. SOCIAL HISTORY: She used to smoke until 30 years ago. Drinks occasionally. No recreational drug use. FAMILY HISTORY: Reviewed and not pertinent. ALLERGIES: No known drug allergies. REVIEW OF SYSTEMS: CONSTITUTIONAL: Denies any fever or chills. HEENT: Has history of headaches, Meniere's disease, but tinnitus or hearing problems at this time. CARDIAC: Denies any cough or chest pains. GI: Admits to left lower quadrant abdominal pains with some nausea, but no vomiting. Constipation for the past 4 days. GENITOURINARY: No dysuria. MUSCULOSKELETAL: Admits to having back pains. She claims sometimes her massages her back for the pains. INTEGUMENTARY: No pruritus. NEUROLOGICAL: No history of seizures, convulsions, or weakness. PSYCHIATRIC: Denies any anxiety or depression. ENDOCRINE: Denies any heat intolerance. HEMATOLOGIC/LYMPHATIC: No easy bruising. PHYSICAL EXAMINATION: GENERAL: The patient is a 72-year-old female, appears healthy, complaining of left lower quadrant abdominal pains. HEAD: Atraumatic. EYES: Conjunctivae pink. EARS: Normal external ear exam. MOUTH: Moist. NECK: Supple. Full range of motion. RESPIRATORY: Lungs are clear to auscultation. CARDIOVASCULAR: Regular rate and rhythm. Pulses with normal radial pulses. VASCULAR: Normal capillary refill. ABDOMEN: Soft, with minimal tenderness on the left lower quadrant. The patient did have some pain medications earlier. No right lower quadrant tenderness evident on deep palpation. RECTAL: Deferred. EXTREMITIES: Full range of motion. MUSCULOSKELETAL: Patient ambulatory. NEUROLOGIC: Awake, alert, oriented x4. PSYCHIATRIC: Patient has appropriate affect. SKIN: Normal color and warm. LABORATORY DATA: Her white count is 6.6, which is normal. Hemoglobin is 14.4. Electrolytes are normal, as well as BUN and creatinine. Glucose 163, just slightly elevated. Liver functions are all normal. IMPRESSION: 1. Constipation. 2. History of ulcerative colitis. Doubt acute appendectomy. RECOMMENDATIONS: The patient may try enemas. If the patient develops right lower quadrant pains, he should come back to the emergency room. DICTATING PHYSICIAN: TOMMY MIRANDA M.D. [id number] PHY#: [id number] ID: [id number] JOB#: [id number] ACCT: [id number] cc:TOMMY MIRANDA M.D. >
== END 2017-11-22 06:44 | disposition home or self-care (01) ==
LOC: ER 22:21
DX: N39.0 Urinary tract infection, site not specified (principal); J18.1 Lobar pneumonia, unspecified organism; K59.00 Constipation, unspecified; E78.00 Pure hypercholesterolemia, unspecified; I10 Essential (primary) hypertension; E11.9 Type 2 diabetes mellitus without complications
CPT/HCPCS: 99285; 96372; 96361; 96375; 96365; 36415; 87040; 87086; 85025; 80053; 81001; 71046; 74176; J0500; J3010; A9270; J2765; J2405; J7040; J0456; J0696; J3490

== ENCOUNTER → 2017-12-05 | Outpatient (CLI) | payer MEDICARE, OTHER ==
--- NOTE | 2017-11-22 07:01 | PDOC CONSULTATION ---
Consultation Consult Date: 11/22/17 Consult reason:: enlarged appendix on CT scan History of Present Illness Admission Date/PCP: SHADIA OBRIEN MD Patient complains of: LLQ pains History of Present Illness: MELIDA ESTRELLA is a 72 year old female who has been c/o crampy LLQ pains past week getting worse last night associated with nausea. Constipated for past 4 days. Seen a local GI who gave some medications for her history of Ulcerative Colitis that did not help. Went to ED last night where a CT scan of abd/pelvis was done. This sowed a slightly dilated appendix without inflammation and constipation. Past Medical History Cardiac Medical History: Reports: Hyperlipidema, Hypertension Endocrine Medical History: Reports: Diabetes Mellitus Type 2 GI Medical History: Reports: Gastroesophageal Reflux Disease, Ulcerative Colitis Social History Smoking Status: Former Smoker Frequency of Alcohol Use: Occasional Family History Family History: Reviewed & Not Pertinent Parental Family History Reviewed: Yes Children Family History Reviewed: No Sibling(s) Family History Reviewed.: No Medication/Allergy Home Medications: Ondansetron [Zofran Odt 4 mg Tablet] 1 tab PO Q4H PRN #30 tab.rapdis 08/28/16 Promethazine HCl [Phenergan 25 mg Tablet] 1 tab PO Q6H PRN #30 tablet 08/28/16 Cyclobenzaprine HCl [Flexeril 10 mg Tablet] 10 mg PO TIDP PRN #15 tab 08/29/16 Azithromycin 250 mg PO DAILY #5 tablet 11/22/17 Cephalexin Monohydrate [Keflex 500 mg Capsule] 500 mg PO TID #38 capsule Dicyclomine HCl [Bentyl 20 mg Tablet] 20 mg PO BID #40 tablet 11/22/17 Metoclopramide HCl [Reglan 10 mg Tablet] 1 - 2 tab PO ASDIR PRN #25 tablet 11/22 Allergies/Adverse Reactions: No Known Allergies Allergy (Unverified 08/28/16 10:00) Review of Systems Constitutional: PRESENT: other - no fever/chills Ears: PRESENT: other - no hearing/visual changes Cardiovascular: PRESENT: other - no chest pains/cough Gastrointestinal: PRESENT: abdominal pain - crampy radiating to left flank, constipation - x 4 days which she claims is rare for her, nausea Genitourinary: PRESENT: other - no dysuria Musculoskeletal: PRESENT: back pain Neurological: PRESENT: other - no weakness Hematologic/Lymphatic: PRESENT: other - no easy bruising Physical Exam General appearance: PRESENT: mild distress Head exam: PRESENT: atraumatic Eye exam: PRESENT: conjunctiva pink Ear exam: PRESENT: normal external ear exam Mouth exam: PRESENT: moist Neck exam: PRESENT: full ROM Respiratory exam: PRESENT: clear to auscultation oswald Cardiovascular exam: PRESENT: RRR Pulses: PRESENT: normal radial pulses GI/Abdominal exam: PRESENT: soft, tenderness - LLQ Rectal exam: PRESENT: deferred Extremities exam: PRESENT: full ROM Musculoskeletal exam: PRESENT: ambulatory Neurological exam: PRESENT: alert, oriented to person, oriented to place, oriented to time, oriented to situation Psychiatric exam: PRESENT: appropriate affect Skin exam: PRESENT: normal color, warm Assessment & Plan - Diagnosis (1) Constipation Is this a current diagnosis for this admission?: Yes - Time Time Spent: 30 to 50 Minutes - Plan Summary Plan Summary: Try Enema No surgical abdomen. Doubt Acute Appendicitis
--- NOTE | 2017-12-06 11:38 | WOMENS IMAGING REPORT ---
EXAM DESCRIPTION: 3D DX MAMMO BILAT COMPLETED DATE/TIME: 12/05/2017 10:57 am REASON FOR STUDY: BILATERAL DIAGNOSTIC MAMMO/C50.111 C50.111 MALIGNANT NEOPLASM OF CENTRAL PORTION OF RIGHT FEMAL COMPARISON: Multiple mammograms since 2017 TECHNIQUE: Standard craniocaudal and mediolateral oblique views of each breast recorded using digita l acquisition and breast tomosynthesis. Additional right breast 90 mediolateral view LIMITATIONS: None. FINDINGS: RIGHT BREAST MASSES: No suspicious masses. CALCIFICATIONS: No new or suspicious calcifications. ARCHITECTURAL DISTORTION: Postoperative architectural distortion with surrounding surgical clips in t he upper inner quadrant right breast at the site of prior lumpectomy. DEVELOPING DENSITY: None. ASYMMETRY: None noted. OTHER: Mild diffuse right breast skin thickening post radiation LEFT BREAST MASSES: No suspicious masses. CALCIFICATIONS: No new or suspicious calcifications. ARCHITECTURAL DISTORTION: None. DEVELOPING DENSITY: None. ASYMMETRY: None noted. OTHER: No other significant finding. Read with the assistance of CAD: .[facility] - R2 Cenova Version 1.3 .[facility] - R2 Cenova Version 1.3 .[facility] - R2 Cenova Version 2.4 .[facility] - R2 Cenova Version 2.4 .[facility] - R2 [employer] Version 9.2 IMPRESSION: No mammographic/ tomosynthesis evidence for malignancy bilaterally. Post therapeutic ch anges on the right BREAST DENSITY: c. The breasts are heterogeneously dense, which may obscure small masses. BIRAD: 2 Benign findings. RECOMMENDATION: RECOMMENDED FOLLOW UP: Please continue yearly bilateral mammography/tomosynthesis ri ght breast diagnostic, left breast screening SPECIFIC INTERVENTION/IMAGING/CONSULTATION RECOMMENDED:No additional intervention/ imaging/consultati on needed at this time. COMMUNICATION:The negative/benign results were communicated to the patient. COMMENT: The patient has been notified of the results by letter per SA requirements. Additional no tification policies are in place for contacting patient with suspicious or incomplete findings. Quality ID #[id number]: The [employer] recommends an annual screening mammogram for women aged 40 years or over. This facility utilizes a reminder system to ensure that all patients receive reminder letters, and/or direct phone calls for appointments. This includes reminders for routine scr eening mammograms, diagnostic mammograms, or other Breast Imaging Interventions when appropriate. Th is patient will be placed in the appropriate reminder system. The [employer] (ACR) has developed recommendations for screening MRI of the breast s in certain patient populations, to be used in conjunction with mammography. Breast MRI surveillanc e may be appropriate for women with more than 20% lifetime risk of developing breast cancer as deter mined by genetic testing, significant family history of the disease, or history of mantle radiation f or Hodgkins Disease. ACR Practice Guidelines 2008. DBT Technology DBT is a type of tomographic mammography. With conventional mammography, overlapping breast tissue ma y make lesions difficult to detect, even with good compression. DBT uses an x-ray tube that rotates a round the breast, taking images at different angles. These images are then combined to create thin sl ices of the breast that the radiologist can view as a 3D reconstruction. The [employer] unit can perform full-field digital mammograms (2D imaging); or DBT (3D imaging); or both, in a combination mode that quickly performs both the mammogram and the tomosynthesis scan while the breast is still compressed. PQRS 6045F: Fluoroscopic imaging is not utilized for breast tomosynthesis. TECHNICAL DOCUMENTATION: FINDING NUMBER: (1) ASSESSMENT: (1) JOB ID: [id number] [employer]- All Rights Reserved Reading location - IP/workstation name: [email or web address]
== END ==
LOC: WI 10:25
PROVIDERS: ATTEND Family Medicine
DX: Z12.39 Encounter for other screening for malignant neoplasm of breast (principal)
CPT/HCPCS: 77066; G0279; 77062

== ENCOUNTER 2018-01-07 12:54 | Emergency (ER) | payer MEDICARE, OTHER ==
--- NOTE | 2018-01-07 13:56 | ER Document Report ---
ED Medical Screen (RME) - General Chief Complaint: Breathing Difficulty Stated Complaint: SHORTNESS OF BREATH Time Seen by Provider: 01/07/18 13:49 Mode of Arrival: Ambulatory Information source: Patient, [facility] Records Notes: 72-year-old female presents with complaint of shortness of breath, upper back and bilateral flank pain. Patient states that her shortness of breath started 1 week prior to arrival which was 1 day after her left wrist surgery. Back and flank pain have been present for 4 days. Patient reports that she was previously diagnosed with pneumonia and is concerned that "it is worse now". Patient denies prior history of PE, DVT. I have greeted and performed a rapid initial assessment of this patient. A comprehensive ED assessment and evaluation of the patient, analysis of test results and completion of medical decision making process we will be contacted by additional ED providers. Vital signs reviewed and patient is tachycardic but not febrile or hypoxic. General; tearful, anxious Respiratory; no respiratory distress, Neuro; alert and oriented x3. TRAVEL OUTSIDE OF THE [place] IN LAST 30 DAYS: No - HPI Onset: Last week Onset/Duration: Gradual, Persistent Quality of pain: Burning, Pressure Severity: Moderate Associated Symptoms: Body/muscle aches, Chest pain, Hurts to breath, Shortness of breath Exacerbated by: Walking Relieved by: Denies Similar symptoms previously: No Recently seen / treated by doctor: Yes - Related Data Smoking: Non-smoker Frequency of alcohol use: Occasional Drug Abuse: None Allergies/Adverse Reactions: No Known Allergies Allergy (Verified 01/07/18 13:52) Past Medical History - Social History Chew tobacco use (# tins/day): No Frequency of alcohol use: Occasional Drug Abuse: None - Past Medical History Cardiac Medical History: Reports: Hx Hypercholesterolemia, Hx Hypertension Endocrine Medical History: Reports: Hx Diabetes Mellitus Type 2 Renal/ Medical History: Denies: Hx Peritoneal Dialysis GI Medical History: Reports: Hx Gastroesophageal Reflux Disease, Hx Ulcerative Colitis Past Surgical History: Reports: Hx Orthopedic Surgery - left wrist Physical Exam - Vital signs Vitals: Temp Pulse Resp BP Pulse Ox 97.3 F 114 H 22 H 136/63 H 99 01/07/18 13:00 01/07/18 13:00 01/07/18 13:00 01/07/18 13:00 01/07/18 13:00 Course - Vital Signs Vital signs: Temp Pulse Resp BP Pulse Ox 97.3 F 114 H 22 H 136/63 H 99 01/07/18 13:00 01/07/18 13:00 01/07/18 13:00 01/07/18 13:00 01/07/18 13:00 Doctor's Discharge - Discharge Referrals: SHADIA OBRIEN MD [Primary Care Provider] - Follow up as needed
--- NOTE | 2018-01-07 14:54 | RADIOLOGY REPORT (SQ) ---
EXAM DESCRIPTION: CHEST 2 VIEWS COMPLETED DATE/TIME: 01/07/2018 2:43 pm REASON FOR STUDY: sob COMPARISON: 11/22/2017 EXAM PARAMETERS: NUMBER OF VIEWS: two views TECHNIQUE: Digital Frontal and Lateral radiographic views of the chest acquired. RADIATION DOSE: NA LIMITATIONS: none FINDINGS: LUNGS AND PLEURA: Significant interval clearing of the right middle-lower lobe pneumonia with slight to mild residual remaining. The left lung remains clear. No pneumothorax or pleural eff usion. MEDIASTINUM AND HILAR STRUCTURES: No masses or contour abnormalities. HEART AND VASCULAR STRUCTURES: Heart normal size. No evidence for failure. BONES: No acute findings. HARDWARE: None in the chest. OTHER: Hardware overlies the lower cervical spine. IMPRESSION: 1. Significant interval clearing of the right middle and right lower lobe pneumonia wit h slight to mild residual remaining. TECHNICAL DOCUMENTATION: JOB ID: [id number] [employer]- All Rights Reserved Reading location - IP/workstation name: [email or web address]
[2018-01-07 15:23] LABS: ABSOLUTE EOSINOPHILS # (AUTO) 0.1 10^3/uL (0.0-0.6); ABSOLUTE LYMPHOCYTES (AUTO) 2.2 10^3/uL (0.5-4.7); ABSOLUTE MONOCYTES (AUTO) 0.5 10^3/uL (0.1-1.4); ABSOLUTE NEUT (AUTO) 2.9 10^3/uL (1.7-8.2); BASOPHILS % (AUTO) 0.7 % (0-2); EOSINOPHILS % (AUTO) 1.5 % (0-6); HEMATOCRIT 37.2 % (36.0-47.0); HEMOGLOBIN 12.9 g/dL (12.0-15.5); LYMPHOCYTES % (AUTO) 38.2 % (13-45); MEAN CORPUSCULAR HEMOGLOBIN 28.6 pg (27.0-33.4); MEAN CORPUSCULAR HGB CONC 34.8 g/dL (32.0-36.0); MEAN CORPUSCULAR VOLUME 82 fl (80-97); MONOCYTES % (AUTO) 7.9 % (3-13); PLATELET COUNT 423 10^3/uL (150-450); RED BLOOD COUNT 4.52 10^6/uL (3.72-5.28); RED CELL DISTRIBUTION WIDTH 13.7 % (11.5-14.0); SEGMENTED NEUTROPHILS % (AUTO) 51.7 % (42-78); TOTAL CELLS COUNTED % (AUTO) 100 %; WHITE BLOOD COUNT 5.7 10^3/uL (4.0-10.5)
[2018-01-07 15:30] LABS: ALANINE AMINOTRANSFERASE 15 U/L (9-52); ALBUMIN 3.8 g/dL (3.5-5.0); ALKALINE PHOSPHATASE 100 U/L (38-126); ANION GAP 8 (5-19); ASPARTATE AMINO TRANSFERASE 11 U/L (14-36); BILIRUBIN,DIRECT 0.4 mg/dL (0.0-0.4); BILIRUBIN,TOTAL 0.5 mg/dL (0.2-1.3); BLOOD UREA NITROGEN 12 mg/dL (7-20); CALCIUM 9.7 mg/dL (8.4-10.2); CARBON DIOXIDE 27 mmol/L (22-30); CHLORIDE 102 mmol/L (98-107); GLUCOSE 187 mg/dL (75-110); POTASSIUM 3.9 mmol/L (3.6-5.0); SODIUM 136.8 mmol/L (137-145); TOTAL PROTEIN 6.9 g/dL (6.3-8.2)
[2018-01-07 15:42] LABS: NT PRO BNP 362 pg/mL (5-900); TROPONIN I < 0.012 ng/mL
[2018-01-07] MEDS ORDERED: ONDANSETRON HCL INJ/PF 4 MG/2 ML SDV IV ONE (16:30)
[2018-01-07] MEDS ORDERED: LORAZEPAM INJ 2 MG/1 ML VIAL IV ONE (16:30)
[2018-01-07] MEDS ORDERED: MORPHINE SULFATE 10 MG/ML INJ IV ONE (16:30)
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
--- NOTE | 2018-01-07 17:24 | RADIOLOGY REPORT (SQ) ---
EXAM DESCRIPTION: CTA CHEST COMPLETED DATE/TIME: 01/07/2018 5:09 pm REASON FOR STUDY: sob, recent surgery COMPARISON: None. TECHNIQUE: CT scan of the chest performed using helical scanning technique with dynamic intravenous contrast injection. Images reviewed with lung, soft tissue and bone windows. Reconstructed coronal and sagittal MPR images reviewed. Additional 3 dimensional post-processing performed to develop Maximal Intensity Projection images (NV P). All images stored on PACS. All CT scanners at this facility use dose modulation, iterative reconstruction, and/or weight based d osing when appropriate to reduce radiation dose to as low as reasonably achievable (ALARA). [facility]: Dose Right [facility]: CareDose [facility]: Dose Right [facility]: Teradose 4D [facility]: Xcalia CONTRAST TYPE AND DOSE: contrast/concentration: Isovue 350.00 mg/ml; Total Contrast Delivered: 65.0 ml; Total Saline Delivered: 90.0 ml Contrast bolus optimized for the pulmonary arteries. Not diagnostic for the aorta. RENAL FUNCTION: BUN 12 creatinine 0.5 RADIATION DOSE: . LIMITATIONS: None. FINDINGS: LUNGS AND PLEURA: Mild pleural/ parenchymal scarring in the middle lobe. No masses. No e ffusions. AORTA AND GREAT VESSELS: No aneurysm. Contrast bolus not optimized for the aorta. HEART: No pericardial effusion. No significant coronary artery calcifications. PULMONARY ARTERIES: No emboli visualized in the main pulmonary arteries or the segmental branches. HILAR AND MEDIASTINAL STRUCTURES: No identified masses or abnormal nodes. HARDWARE: None in the chest. UPPER ABDOMEN: No significant findings. Limited exam. THYROID AND OTHER SOFT TISSUES: The right lobe of the thyroid is larger than the left and appears to be somewhat inhomogeneous. BONES: No acute or significant finding. 3D MIPS: Confirm above findings. OTHER: No other significant finding. IMPRESSION: 1. There is no evidence of pulmonary emboli. 2. The right lobe of the thyroid gland is larger than the left as described. COMMENT: Quality ID # [id number]: Final reports with documentation of one or more dose reduction techniques (e.g., Automated exposure control, adjustment of the mA and/or kV according to patient size, use of iterative reconstruction technique) TECHNICAL DOCUMENTATION: JOB ID: [id number] [employer]- All Rights Reserved Reading location - IP/workstation name: [email or web address]
[2018-01-07] MEDS ORDERED: NORMAL SALINE 1000 ML 500 ML IV ONE (17:41)
[2018-01-07 19:06] VITALS: BP 125/69
[2018-01-07] MEDS ORDERED: ALBUTEROL SULFATE HFA (90 MCG/PUFF) 8 GM MDI (1 MDI/ER DISP) IH ONE (19:15)
--- NOTE | 2018-01-07 19:37 | EKG REPORT ---
SEVERITY:- BORDERLINE ECG - SINUS RHYTHM BORDERLINE T ABNORMALITIES, INFERIOR LEADS : Confirmed by: Anselmo Nichols 07-Jan-2018 19:37:14
== END 2018-01-07 19:55 | disposition home or self-care (01) ==
LOC: ER 12:54
DX: J18.1 Lobar pneumonia, unspecified organism (principal); R06.00 Dyspnea, unspecified; R06.02 Shortness of breath; R07.1 Chest pain on breathing; E78.00 Pure hypercholesterolemia, unspecified; I10 Essential (primary) hypertension; E11.9 Type 2 diabetes mellitus without complications; Z87.891 Personal history of nicotine dependence
CPT/HCPCS: 93005; 99285; 96361; 96374; 96375; 36415; 85025; 80053; 84484; 83880; 71046; 71275; 93010; J2270; J2060; J2405; J3490

== ENCOUNTER → 2019-10-26 | Outpatient (CLI) | payer MEDICARE, OTHER ==
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
== END ==
LOC: WI 13:15
DX: Z12.31 Encounter for screening mammogram for malignant neoplasm of breast (principal); M81.0 Age-related osteoporosis without current pathological fracture; Z79.811 Long term (current) use of aromatase inhibitors
CPT/HCPCS: 77063; 77067; 77080